=== PATIENT | male | born 1995 | race Caucasian/White ===

== ENCOUNTER 2023-07-16 14:38 | Emergency (ER) | payer OTHER, SELFPAY ==
[2023-07-16 14:46] VITALS: BP 156/108
[2023-07-16 15:59] LABS: % Basophils 0.4 % (0-2); % Eosinophils 1.7 % (0-6); % Immature Granulocytes 0.2 % (0-0.5); % Lymphocytes 32.7 % (20.5-51.1); % Monocytes 10.8 % (1.7-9.3); % Neutrophils 54.2 % (42.2-75.2); Absolute Eosinophils 0.1 10^3/uL (0-0.7); Absolute Lymphocytes 1.7 10^3/uL (1.2-3.4); Absolute Monocytes 0.6 10^3/uL (0.1-0.6); Absolute Neutrophils 2.8 10^3/uL (1.4-6.5); Hematocrit 42.9 % (39.0-52.0); Hemoglobin 15.2 g/dL (13.0-18.0); Mean Corp Hgb Conc. 35.4 g/dL (33.0-37.0); Mean Corpuscular Hgb 31.7 pg (27.0-31.0); Mean Corpuscular Volume 89.4 fL (80.0-94.0); Mean Platelet Volume 9.8 fL (7.4-10.4); Nucleated Red Blood Cells % 0 % (-); Platelet Count 305 10^3/uL (130-400); Red Cell Dist. Width 11.9 % (11.5-14.5); White Blood Cell Count 5.2 10^3/uL (4.8-10.8)
--- NOTE | 2023-07-16 16:13 | ED.GENMED ---
History of Present Illness
General
Chief Complaint: Rectal Bleeding
Source: patient
Time Seen by Provider: 07/16/23 15:25
Travel History
Have you had any contact with someone who has COVID-19?: No
Do you have any symptoms of coronavirus? Fever > 100 degrees, chills, cough, shortness of breath, sore throat, loss of taste or smell, muscle aches, or headache?: No
History of Present Illness
History of Present Illness:
27-year-old male with no significant past medical history presenting to the emergency department for evaluation of intermittent blood within his stool over the last 3 days stating that the first time he noticed this was only when wiping. Today
patient noted a little bit more blood within the toilet bowl following completion of his bowel movement but stating his stool was still light brown in color. Patient states his main concern his father in his early 50s from a history of
colon cancer although notes his father did not receive much medical care or screening prior to this diagnosis. Patient denies any change in oral intake, weight loss, fevers or any pain associated with this. He currently does not have a primary
care provider call to make an appointment with a provider based off of his insurance company but they would be unable to see him for 4 months. Social history was significant for former smoker for 10 years but quit a year ago. Denies any alcohol
use or drug use.
Past History
Past History
ED Past Medical History: None
ED Past Surgical History: None
Social History
Tobacco: Former smoker
Alcohol: None
Drug: None
Personal: Single
Living: with family
Employment: Employed
Review of Systems
Review of Systems
All Other Systems: ROS reviewed and negative except as documented in HPI and ROS
Phy Exam
Physical Exam
Physical Exam:
GENERAL: Alert , in no apparent distress
EYE: clear conjunctiva b/l
HEAD: NCAT
ENT: o/p clr, mmm.
CARDIAC: Regular rate and rhythm .
LUNGS: Clear breath sounds bilaterally, no acute respiratory distress, no wheezes/rales/rhonchi
ABDOMEN: Soft, without focal tenderness, no r/g, no cvat
Rectal exam: Light brown stool, heme-negative, no external hemorrhoids visualized
NEUROLOGICAL: Alert and oriented
SKIN: Warm and dry, skin intact.
MUSCULOSKELETAL: No edema, well perfused.
PSYCH: Normal and appropriate interaction.
Scores
Heart Failure Risk
Heart Failure Risk Score: Not Applicable
Heart Score for Chest Pain Patients
STEMI patient?: Not applicable
Withdrawal Assessment of Alcohol
Withdrawal Assessment Completed?: Not applicable
Course
Orders/Labs/Results
Orders:
Orders
07/16/23 15:41
Complete Blood Count/With Diff Urgent
Comprehensive Metabolic Panel Urgent
Abnormal Lab Results
07/16/23
15:41
MCH 31.7 H pg
(27.0-31.0)
Monocytes % 10.8 H %
(1.7-9.3)
Glucose 103 H mg/dl
(70-99)
Calcium 10.4 H mg/dl
(8.4-10.2)
Albumin 5.2 H g/dl
(3.5-5.0)
07/16/23 15:41
07/16/23 15:41
Vital Signs
Initial and Last Documented VS:
Initial Vital Signs
Temp Pulse Resp BP Pulse Ox
98.7 F 70 18 156/108 100
07/16/23 14:46 07/16/23 14:46 07/16/23 14:46 07/16/23 14:46 07/16/23 14:46
Last Documented Vital Signs
Temp Pulse Resp BP Pulse Ox
98.7 F 70 18 156/108 100
07/16/23 14:46 07/16/23 14:46 07/16/23 14:46 07/16/23 14:46 07/16/23 14:46
MDM/Problems Addressed
Differential Diagnosis Includes:
Hemorrhoidal bleeding, less concern for diverticular bleed, less concern for malignancy although family history is considered
MDM/Problems Addressed:
Otherwise healthy 27-year-old male presenting to the emergency department for evaluation of bright red blood intermixed with his stool. Patient was concerned as this was little bit worse over the last 3 days. Notes blood seems to be worse when
wiping and lessens upon completion of wiping. Abdominal exam reassuring. Stool is light brown and heme-negative. I am most suspicious for hemorrhoidal bleeding. Will check labs but anticipate discharge home. I did consider CT imaging however
given lack of pain and other symptoms with this I did not feel this was necessary to be done on an emergent basis.
*Pulse Oximetry
Patient hypoxic: no
*Critical Care Note
Total Time (30-74mins, 75-104mins- exclusive of procedures): Not Applicable
Patient Management
Escalation/DeEscalation of care consider admission/obs:
Labs unremarkable. Stable for d/c home. PCP referall line contacted to help expedite follow up. Also provided patient with GI information to contact for appointment
ED Attending Note
-
Portions of this chart may have been created with voice recognition software.� Occasional wrong word or��sound alike� substitutions may have occurred due to the inherent limitations of voice recognition software.
Discharge Plan
Departure
Patient Disposition: Home (Routine Discharge)
Date of Disposition: 07/16/23
Time of Disposition: 16:18
Patient with high blood pressure during this ER visit?: Yes
Discharge Problem:
Hemorrhoids, internal, with bleeding
Instructions: Hemorrhoids (DC)
Prescriptions:
New
hydrocortisone acetate [Anusol-HC] 25 mg suppository
25 mg MN HS Qty: 24 0RF
No Action
Theragen Tablet
1 tab PO DAILY
Referrals:
Rahul Lance MD [Active] - (GI - Call for appointment)
Rohit Small MD [Family Provider] -
Interventions
Interventions:
*Risk Screen - Suicide Last Done: 07/16/23 14:46
*General Assessment Last Done: 07/16/23 14:46
*Neglect/Abuse Screening Last Done: 07/16/23 14:46
ED- Fall Risk Assessment Last Done: 07/16/23 15:58
*ED COVID-19 Vaccine History Last Done: 07/16/23 15:57
*Nursing Disposition Last Done: 07/16/23 16:25
LW-Tmbqfq-Mzswdulxca Assessment Last Done: 07/16/23 15:57
ED- Cardiac Assessment Last Done: 07/16/23 15:57
ED- Pulmonary Assessment Last Done: 07/16/23 15:57
Discharge Date and Time
Discharge Date/Time: 07/16/23 16:25
[2023-07-16 16:16] LABS: ALT (SGPT) 23 U/L (0-50); AST (SGOT) 26 U/L (17-59); Albumin 5.2 g/dl (3.5-5.0); Alkaline Phosphatase 49 U/L (38-126); Blood Urea Nitrogen 18 mg/dl (9-20); Calcium 10.4 mg/dl (8.4-10.2); Carbon Dioxide 28 mmol/L (22-30); Chloride 100 mmol/L (98-107); Glucose 103 mg/dl (70-99); Potassium 4.3 mmol/L (3.5-5.1); Sodium 138 mmol/L (135-145); Total Bilirubin 0.5 mg/dl (0.2-1.3); Total Protein 7.9 g/dl (6.3-8.2); eGFR > 60.00
== END 2023-07-16 16:25 | disposition home or self-care (01) ==
LOC: EMR 14:38
PROVIDERS: Physician Assistant Medical; EMERGENCY PHYSICIAN Emergency Medicine; FAMILY PHYSICIAN Family Medicine
DX: K64.8 Other hemorrhoids (principal); Z87.891 Personal history of nicotine dependence; R03.0 Elevated blood-pressure reading, without diagnosis of hypertension
CPT/HCPCS: 99283; 80053; 85025